=== PATIENT | female | born 1950 | race Caucasian/White ===

== ENCOUNTER 2020-02-26 09:19 | Inpatient (IN) ==
[2020-02-26] MEDS ORDERED: dilTIAZem HCl 5 MG/ML 5 ML VIAL IV ONE (09:28)
[2020-02-26] MEDS ORDERED: STAT IV Infusion **Titration per Protocol STA (09:28)
[2020-02-26] MEDS ORDERED: dilTIAZem HCl 5 MG/ML 5 ML VIAL IV STA (09:28)
[2020-02-26] MEDS ORDERED: ASPIRIN CHEW 324 MG PO STA (09:28)
[2020-02-26] MEDS ORDERED: dilTIAZem HCL 125 MG in DEXTROSE 5% 100 ML IV SCH (09:30)
[2020-02-26] MEDS ORDERED: SODIUM CHLORIDE 0.9% 1000ML 1,000 ML IV SCH (09:30)
[2020-02-26 09:39] LABS: Basophils # (auto) 0.01 K/uL (0-0.2); Basophils % (auto) 0.1 %; Eosinophils # (auto) 0.15 K/uL (0-0.5); Eosinophils % (auto) 2.2 %; Hematocrit (blood only) 38.8 % (37-47); Hemoglobin 13.6 g/dL (12.0-16.0); Immature Granulocytes # (auto) 0.01 K/uL (0.00-0.02); Immature Granulocytes % (auto) 0.1 %; Lymphocytes # (auto) 0.74 K/uL (1.2-3.4); Lymphocytes % (auto) 10.7 %; Mean Corpuscular Hemoglobin 33.4 pg (25-34); Mean Corpuscular Hgb Conc 35.1 g/dL (32-36); Mean Corpuscular Volume 95.3 fL (80-100); Monocytes # (auto) 0.85 K/uL (0.11-0.59); Monocytes % (auto) 12.3 %; Neutrophils # (auto) 5.14 K/uL (1.4-6.5); Neutrophils % (auto) 74.6 %; Platelet Count 271 K/uL (130-400); RDW Coefficient of Variation 12.8 % (11.5-14.5); RDW Standard Deviation 44.6 fL (36.4-46.3); Red Blood Count 4.07 M/uL (4.2-5.4)
--- NOTE | 2020-02-26 09:42 | XRay Report ---
XR chest 1V portable CLINICAL HISTORY: Atypical chest pain COMPARISON STUDY: January 2011 FINDINGS: The heart is the upper limits of normal in size. There is no failure. There is no focal pul monary consolidation. There are no pleural effusions.[ IMPRESSION: No active disease in the chest. ACT 112: Negative or not required by law. Electronically signed by: Duc Kirby M.D. 02/26/2020 9:41 AM
[2020-02-26 09:49] LABS: Partial Thromboplastin Ratio 0.9; Partial Thromboplastin Time 25.5 Seconds (21.0-31.0); Prothrombin Time 10.9 Seconds (9.0-12.0)
[2020-02-26 09:57] LABS: BUN Creatinine Ratio 12.5 (10-20); Blood Urea Nitrogen 13 mg/dl (7-18); Calcium 9.1 mg/dl (8.5-10.1); Carbon Dioxide 28 mmol/L (21-32); Chloride 112 mmol/L (98-107); Creatinine Clr Calc Pharmacy 54.8 ml/min; Est GFR (Non-African American) 53.5; Glucose 105 mg/dl (70-99); Lipase 69 U/L (73-393); Magnesium 2.2 mg/dl (1.8-2.4); Potassium 3.4 mmol/L (3.5-5.1); Sodium 145 mmol/L (136-145)
[2020-02-26 10:02] LABS: Troponin I < 0.015 ng/ml (0-0.045)
--- NOTE | 2020-02-26 10:14 | Emergency Department Note ---
History of Present Illness General Chief Complaint: Cardiac Assessment Time Seen by Provider: 02/26/20 09:23 History of Present Illness Provider Complaint: + rapid heart beat Onset (ago): year(s) (1) Duration: + Intermittent Maximum Pain Intensity: 5 Current Pain Intensity: 0 Associated symptoms: + cough; no chest pain, no shortness of breath, no syncope, no near-syncope, no nausea, no vomiting, no anxiety, no diaphoresis, no paresthesias and no muscle cramps HPI narrative: Patient states she has been having symptoms of palpitations on and off for the last year. She states she went to her doctor's office for an annual checkup today and found her to have a rapid heartbeat and was referred here to the emergency department. Home Medications Medication Instructions Recorded Confirmed Type cholecalciferol (vitamin D3) 25 25 mcg PO DAILY 07/25/19 07/25/19 History mcg (1,000 unit) tablet furosemide 20 mg tablet 20 mg PO BID 07/25/19 07/25/19 History gabapentin 300 mg capsule 300 mg PO DAILY 07/25/19 07/25/19 History ibuprofen 200 mg tablet 200 mg PO Q6H PRN 07/25/19 07/25/19 History mecobalamin (vitamin B12) 5,000 5,000 mcg PO DAILY 07/25/19 07/25/19 History mcg lozenge pantoprazole 40 mg granules 40 mg PO DAILY 07/25/19 07/25/19 History delayed-release for susp in packet potassium chloride 20 mEq oral 20 meq PO DAILY 07/25/19 07/25/19 History packet tofacitinib 11 mg tablet,extended 11 mg PO DAILY 07/25/19 07/25/19 History release 24 hr meloxicam 15 mg tablet 15 mg PO DAILY PRN #30 tab 10/14/19 Rx Allergies Allergy/AdvReac Type Severity Reaction Status Date / Time iodine AdvReac Severe DIFFICULTY Unverified 07/25/19 14:49 BREATHING codeine AdvReac Unknown Verified 07/25/19 14:49 etanercept [From Enbrel] AdvReac Unknown Verified 07/25/19 14:49 hydroxychloroquine AdvReac Unknown Verified 07/25/19 14:49 [From Plaquenil] Iodinated Contrast Media AdvReac Unknown Verified 07/25/19 14:49 meperidine [From Demerol] AdvReac Unknown Verified 07/25/19 14:49 nabumetone AdvReac Unknown Verified 07/25/19 14:49 petrolatum,white AdvReac Unknown Verified 07/25/19 14:49 [From Petroleum Jelly] penicillin G AdvReac HIVES Verified 07/25/19 14:49 Sulfa (Sulfonamide AdvReac RASH, HIVES Verified 07/25/19 14:49 Antibiotics) Past Med/Surg History Medical History (Updated 02/26/20 @ 10:14 by Tyler Serna) Asthma No pertinent family history Surgical History (Updated 02/26/20 @ 10:10 by Tyler Serna) No pertinent past surgical history Social History Smoking Status: Never smoker Feels Safe at Home: Yes Review of Systems A total of 10 systems reviewed and were otherwise negative Physical Exam Vital Signs: Vital Signs - 24 hr 02/26/20 09:22 02/26/20 09:28 02/26/20 09:31 Temperature 37.3 C Temperature Source Oral Pulse Rate 159 H 142 H 177 H Pulse Rate from Sp O2 Sensor 167 H 158 H Respiratory Rate 14 26 H 21 Blood Pressure 178/140 H 178/140 H 163/133 H Blood Pressure Mayelin n 152 152 143 Pulse Oximetry 97 96 97 Oxygen Delivery Me thod Room Air Sepsis Recent Feve r Within 48 Hours No Sepsis New/Unexpla ined Change in Men luis Status No Sepsis Action Take n by Nursing Physician Notified 02/26/20 09:36 02/26/20 09:39 02/26/20 09:45 Temperature Temperature Source Pulse Rate 108 H 114 H Pulse Rate from Sp O2 Sensor 110 H 98 H Respiratory Rate 12 16 Blood Pressure 131/105 H 132/93 Blood Pressure Mayelin n 113 106 Pulse Oximetry 97 96 96 Oxygen Delivery Me thod Room Air Sepsis Recent Feve r Within 48 Hours Sepsis New/Unexpla ined Change in Men luis Status Sepsis Action Take n by Nursing 02/26/20 10:00 Temperature Temperature Source Pulse Rate 129 H Pulse Rate from Sp O2 Sensor 134 H Respiratory Rate 21 Blood Pressure 128/87 Blood Pressure Mayelin n 100 Pulse Oximetry 96 Oxygen Delivery Me thod Sepsis Recent Feve r Within 48 Hours Sepsis New/Unexpla ined Change in Men luis Status Sepsis Action Take n by Nursing Physical Exam: Physical Exam GENERAL: She is oriented to person, place, and time. She appears well-developed and well-nourished. She does not appear distressed. HENT: Exam performed. -Head: Normocephalic and atraumatic. -Right Ear: External ear normal. No mastoid tenderness. -Left Ear: External ear normal. No mastoid tenderness. -Mouth/Throat: The oropharynx is clear and moist. No trismus in the jaw. No dental abscesses or uvula swelling. No oropharyngeal exudate or tonsillar abscesses. EYES: Conjunctivae and EOM are normal. Pupils are equal, round, and reactive to light. Right eye exhibits no discharge. Left eye exhibits no discharge. No scleral icterus. NECK: Normal range of motion. Neck supple. No JVD present. No spinous process tenderness present. No carotid bruit present. No rigidity. No tracheal deviation and normal range of motion present. No Brudzinski's sign and no Kernig's sign noted. CV: Tachycardic rate, irregular rhythm, normal heart sounds and intact distal pulses. There is no peripheral edema. Palpable radial pulses bue. PULM/CHEST: Effort normal and breath sounds normal. No respiratory distress. No stridor. She has no wheezes. She has no rales. -Chest Wall: She exhibits no tenderness. ABD: The abdomen is soft. Bowel sounds are normal. She has no distension. No mass is present. There is no tenderness. There is no rebound, no guarding, no Jimenez's sign and no tenderness at McBurney's point. Rovsig negative MUSC/SKEL: Normal range of motion. There is no peripheral edema, tenderness or deformity. LYMPH: No cervical adenopathy. NEURO: She is alert and oriented to person, place, and time. She has normal strength. No cranial nerve deficit or sensory deficit. Coordination and gait normal. GCS eye subscore is 4. GCS verbal subscore is 5. GCS motor subscore is 6. Cerebellar tests wnl. SKIN: Skin is warm and dry. She is not diaphoretic. PSYCH: She has a normal mood and affect. Behavior is normal. Judgment and thought content normal. Course Course 09: The patient was evaluated in room A2. A complete history and physical exam was performed. Patient was placed on environmental monitoring specialist and found to be in A. fib RVR with a rate between 160-180. Large-bore IV access was obtained. Patient was placed on continuous pulse ox. IV fluids were started and patient was push 20 mg of Cardizem IV bolus. This improved the patient's heart rate. Patient will be started on a Cardizem drip. 1011: Vital signs stable on Cardizem drip. Labs within normal limits. Imaging within normal limits. Aspirin given to the patient. Patient has a chads 2 score of 1. Patient will be admitted to [facility] team Dr. Taveras notified. Administered Medications Sodium Chloride (Nss 1000ml) 1,000 mls @ 999 mls/hr IV .Q1H1M [facility] Stop: 02/26/20 10:30 Last Admin: 02/26/20 09:32 Dose: 999 mls/hr Documented by: [id number] Diltiazem HCl 125 mg/ Dextrose 125 mls @ 5 mls/hr IV .Q24H [facility]; Protocol Stop: 03/27/20 09:29 Last Admin: 02/26/20 09:48 Dose: 5 mg/hr, 5 mls/hr Documented by: [id number] Cosigned by: [id number] Discontinued Medications Aspirin (Aspirin Chew 324 Mg) 324 mg PO NOW STA Stop: 02/26/20 09:29 Last Admin: 02/26/20 09:34 Dose: 324 mg Documented by: [id number] Diltiazem HCl (Diltiazem Hcl 5 Mg/Ml 5 Ml Vial) Confirm Administered Dose 25 mg IV .STK-MED ONE Stop: 02/26/20 09:29 Last Increment: 02/26/20 09:32 Dose: 20 mg Documented by: [id number] Cosigned by: [id number] Diltiazem HCl (Diltiazem Hcl 5 Mg/Ml 5 Ml Vial) 20 mg IV NOW STA Stop: 02/26/20 09:29 Last Admin: 02/26/20 09:32 Dose: Not Given Documented by: [id number] Miscellaneous (Stat Iv Infusion Titration Per Protocol) 1 ea N/A NOW STA Stop: 02/26/20 09:29 Last Admin: 02/26/20 09:47 Dose: 1 ea Documented by: [id number] Medical Decision Making Laboratory Data Result diagrams: 02/26/20 09:30 01/21/21 09:30 Lab Results 02/26/20 02/26/20 02/26/20 Range/Units 09:30 09:30 09:30 WBC 6.90 (4.8-10.8) K/uL RBC 4.07 L (4.2-5.4) M/uL Hgb 13.6 (12.0-16.0) g/dL Hct 38.8 (37-47) % MCV 95.3 (80-100) fL MCH 33.4 (25-34) pg MCHC 35.1 (32-36) g/dL RDW Std Deviation 44.6 (36.4-46.3) fL RDW Coeff of Jeevan 12.8 (11.5-14.5) % Plt Count 271 (130-400) K/uL MPV 9.0 (7.4-10.4) fL Immature Gran % (Auto) 0.1 % Neut % (Auto) 74.6 % Lymph % (Auto) 10.7 % Meagher % (Auto) 12.3 % Eos % (Auto) 2.2 % Baso % (Auto) 0.1 % Neut # (Auto) 5.14 (1.4-6.5) K/uL Lymph # (Auto) 0.74 L (1.2-3.4) K/uL Meagher # (Auto) 0.85 H (0.11-0.59) K/uL Eos # (Auto) 0.15 (0-0.5) K/uL Baso # (Auto) 0.01 (0-0.2) K/uL Immature Gran # (Auto) 0.01 (0.00-0.02) K/uL PT 10.9 (9.0-12.0) Seconds INR 1.0 (0.9-1.1) APTT 25.5 (21.0-31.0) Seconds PTT Ratio 0.9 Sodium 145 (136-145) mmol/L Potassium 3.4 L (3.5-5.1) mmol/L Chloride 112 H (98-107) mmol/L Carbon Dioxide 28 (21-32) mmol/L Anion Gap 5.0 (3-11) BUN 13 (7-18) mg/dl Creatinine 1.06 (0.6-1.2) mg/dl Est Cr Clr Drug Dosing 54.8 ml/min Est GFR ( Amer) 62.0 Est GFR (Non-Af Amer) 53.5 BUN/Creatinine Ratio 12.5 (10-20) Glucose 105 H (70-99) mg/dl Calcium 9.1 (8.5-10.1) mg/dl Magnesium 2.2 (1.8-2.4) mg/dl Troponin I < 0.015 (0-0.045) ng/ml Lipase 69 L (73-393) U/L COVID-19 Eval Order 02/26/20 Range/Units 09:40 WBC (4.8-10.8) K/uL RBC (4.2-5.4) M/uL Hgb (12.0-16.0) g/dL Hct (37-47) % MCV (80-100) fL MCH (25-34) pg MCHC (32-36) g/dL RDW Std Deviation (36.4-46.3) fL RDW Coeff of Jeevan (11.5-14.5) % Plt Count (130-400) K/uL MPV (7.4-10.4) fL Immature Gran % (Auto) % Neut % (Auto) % Lymph % (Auto) % Meagher % (Auto) % Eos % (Auto) % Baso % (Auto) % Neut # (Auto) (1.4-6.5) K/uL Lymph # (Auto) (1.2-3.4) K/uL Meagher # (Auto) (0.11-0.59) K/uL Eos # (Auto) (0-0.5) K/uL Baso # (Auto) (0-0.2) K/uL Immature Gran # (Auto) (0.00-0.02) K/uL PT (9.0-12.0) Seconds INR (0.9-1.1) APTT (21.0-31.0) Seconds PTT Ratio Sodium (136-145) mmol/L Potassium (3.5-5.1) mmol/L Chloride (98-107) mmol/L Carbon Dioxide (21-32) mmol/L Anion Gap (3-11) BUN (7-18) mg/dl Creatinine (0.6-1.2) mg/dl Est Cr Clr Drug Dosing ml/min Est GFR ( Amer) Est GFR (Non-Af Amer) BUN/Creatinine Ratio (10-20) Glucose (70-99) mg/dl Calcium (8.5-10.1) mg/dl Magnesium (1.8-2.4) mg/dl Troponin I (0-0.045) ng/ml Lipase (73-393) U/L COVID-19 Eval Order Covid19 [facility] Imaging Data Radiologist's Impression: XR chest 1V portable CLINICAL HISTORY: Atypical chest pain COMPARISON STUDY: January 2011 FINDINGS: The heart is the upper limits of normal in size. There is no failure. There is no focal pulmonary consolidation. There are no pleural effusions.[ IMPRESSION: No active disease in the chest. ACT 112: Negative or not required by law. Electronically signed by: Duc Kirby M.D. 02/26/2020 9:41 AM Dictated: 02/26/20939Transcribed: 02/26/20939 ECG Data Indication: palpitations Rate (beats per minute): 159 Rhythm: atrial fibrillation Findings: no ST depression, no ST elevation and no prolonged QT Additional Comments: EKG #[id number] status post 20 mg Cardizem IV bolus: Atrial fibrillation with rate of 110. QRS 74. QTc 462. No ST elevation or ST dep ression. [facility] Narrative 0923: The patient was evaluated in room A2. A complete history and physical exam was performed. Patient was placed on environmental monitoring specialist and found to be in A. fib RVR with a rate between 160-180. Large-bore IV access was obtained. Patient was placed on continuous pulse ox. IV fluids were started and patient was push 20 mg of Cardizem IV bolus. This improved the patient's heart rate. Patient will be started on a Cardizem drip. 1011: Vital signs stable on Cardizem drip. Labs within normal limits. Imaging within normal limits. Aspirin given to the patient. Patient has a chads 2 score of 1. Patient will be admitted to the [facility] team Dr. Taveras notified. Impression & Plan Atrial fibrillation with rapid ventricular response Critical Care Time Critical Care Time: Yes Total Critical Care Time: 69 I have personally spent greater than 69 minutes of critical care time in the direct management of this patient. This includes bedside care, interpretation of diagnostic studies, and testing, discussion with consultants, patient, and family members, and other required patient management activities. This 69 minutes is in excess of all separately billable procedures. Discharge Plan Visit Data Chief Complaint: Cardiac Assessment ED Provider: Tyler Serna Discharge Problem: Atrial fibrillation with rapid ventricular response Patient Disposition: Admitted As Inpatient Forms Stand Alone Forms: [facility], Virtual Emergency Department, Important Visit Information Prescriptions Prescriptions: No Action meloxicam 15 mg tablet 15 mg PO DAILY PRN (Reason: pain) Qty: 30 RF: 2 furosemide [Lasix] 20 mg tablet 20 mg PO BID RF: 0 potassium chloride 20 mEq packet 20 meq PO DAILY RF: 0 cholecalciferol (vitamin D3) 25 mcg (1,000 unit) tablet 25 mcg PO DAILY RF: 0 Protonix [address] for susp in packet 40 mg PO DAILY RF: 0 Xeljanz XR 11 mg tablet extended release 24 hr 11 mg PO DAILY RF: 0 mecobalamin (vitamin B12) 5,000 mcg lozenge 5,000 mcg PO DAILY RF: 0 ibuprofen [Advil] 200 mg tablet 200 mg PO Q6H PRNRF: 0 gabapentin 300 mg capsule 300 mg PO DAILY RF: 0 Referrals Referrals: Robert Moncada MD [Primary Care Provider] -
[2020-02-26] MEDS ORDERED: POTASSIUM CHLORIDE CRTAB 20 MEQ TABCR PO STA (10:43)
[2020-02-26] MEDS ORDERED: METOPROLOL TARTRATE 1 MG/ML VIAL IV ONE (10:49)
--- NOTE | 2020-02-26 12:01 | History & Physical Report ---
Date of Service February 26, 2020 Assessment & Plan (1) Atrial fibrillation with rapid ventricular response: Mrs. Amin is a 69 year old female with a history of Asthma, Inflammatory Arthritis, Osteoarthritis, GERD, and Hypertension who presents to [facility] ER with newly diagnosed A-Fib with RVR which has likely been coming and going over the past year if not longer, but her current episode of A-Fib started about 2 months ago and has persisted. It appears that her A-Fib manifests with tachy- palpitations, decreased exercise tolerance, unusual CAMPOS when she walks her dog, and more fatigue in general. Fortunately she has not experienced any angina pectoris or anginal equivalent symptoms, overt symptoms of heart failure, nor has she had any neurologic symptoms suggestive of stroke or mini-stroke. We had a discussion today regarding what A-Fib is, the natural history of atrial arrhythmias, and various management strategies. She is currently on a Diltiazem drip but her V-rates are still in the 120 to 140 range. -- Admit to PCU on observation status. -- Continue Diltiazem drip. -- Correct hypokalemia. -- IV Lopressor 5 mg now x 1 dose, then Q4H as needed for HR > 110 bpm. -- Begin Lopressor 25 mg p.o. Q6H for better rate control. -- Begin Eliquis 5 mg b.i.d. -- 1st dose was given in the ER. -- Cardiology Consult. -- Echocardiogram was done in ER, appears to have normal LV systolic function and a mild degree of MR. (2) Hypokalemia: -- Serum K on admission 3.4 mmol/L -- Given Potassium Chloride 20 mEq in the ER. -- Monitor daily BMP. (3) Asthma: -- Continue Singulair 10 mg QHS. History of Present Illness Chief Complaint: -- Atrial Fibrillation with RVR. Primary Care Provider: Robert Moncada MD Mrs. Amin is a 69 year old female with a history of Asthma, Inflammatory Arthritis, Osteoarthritis, GERD, and Hypertension who presented to the ER today as a referral from her PCP, Dr. Steinberg. Patient went in for an annual physical exam today and was noted to tachycardic secondary A-Fib with RVR. Patient admits to having intermittent tachy-palpitations over the past year if not longer, but her current episode started about 2 months ago and has persisted. She admits to decreased exercise tolerance, unusual CAMPOS when she walks her dog, and more fatigue in general. She denies any chest pain, heaviness, tightness, or pressure. She denies any orthopnea or PND, although she has not been sleeping well lately. She denies any syncope or near-syncope. She has not experienced any neurologic symptoms suggestive of stroke or mini- stroke. Patient denies any history of heart disease, CAD, [place], rheumatic fever, or vascular disease. She had a Cardiac Catheterization about 15 years ago that was "normal" per patient. Allergies Allergy/AdvReac Type Severity Reaction Status Date / Time iodine AdvReac Severe DIFFICULTY Unverified 02/26/20 11:06 BREATHING codeine AdvReac Unknown Verified 02/26/20 11:06 etanercept [From Enbrel] AdvReac Unknown Verified 02/26/20 11:06 hydroxychloroquine AdvReac Unknown Verified 02/26/20 11:06 [From Plaquenil] Iodinated Contrast Media AdvReac Unknown Verified 02/26/20 11:06 meperidine [From Demerol] AdvReac Unknown Verified 02/26/20 11:06 nabumetone AdvReac Unknown Verified 02/26/20 11:06 petrolatum,white AdvReac Unknown Verified 02/26/20 11:06 [From Petroleum Jelly] penicillin G AdvReac HIVES Verified 02/26/20 11:06 Sulfa (Sulfonamide AdvReac RASH, HIVES Verified 02/26/20 11:06 Antibiotics) Home Medications Medication Instructions Recorded Confirmed Type cholecalciferol (vitamin D3) 25 25 mcg PO QAM 07/25/19 02/26/20 History mcg (1,000 unit) tablet mecobalamin (vitamin B12) 5,000 5,000 mcg PO QAM 07/25/19 02/26/20 History mcg lozenge pantoprazole 40 mg granules 40 mg PO HS 07/25/19 02/26/20 History delayed-release for susp in packet tofacitinib 11 mg tablet,extended 11 mg PO DAILY 07/25/19 02/26/20 History release 24 hr gabapentin 400 mg PO HS 02/26/20 02/26/20 History ibuprofen 600 mg PO BID 02/26/20 02/26/20 History loperamide [Imodium] 2 mg PO Q OTHER DAY PRN 02/26/20 02/26/20 History montelukast [Singulair] 10 mg PO HS 02/26/20 02/26/20 History Past Med/Surg History Medical History Asthma GERD (gastroesophageal reflux disease) HTN (hypertension) Inflammatory arthritis No pertinent family history Surgical History No pertinent past surgical history Family History Mother Unspecified atrial fibrillation Social History Smoking Status: Never smoker Feels Safe at Home: Yes Review of Systems Review of Systems: All systems reviewed & are unremarkable except as noted in Subjective Physical Exam Physical Exam: GENERAL: Patient in no acute distress. HEENT: Head is atraumatic, normocephalic. EOM's intact. Facies symmetric. No perioral cyanosis. NECK: No JVD. JVP is at the level of the clavicle sitting upright. Carotid upstrokes are + 2 bilaterally. No bruits are noted. CHEST/LUNGS: Clear to auscultation throughout all lung barton. No rales or crackles. CVS: S1 and S2 are irregularly irregular and tachycardic with a V-rate 130 bpm. No obvious murmurs, gallops, or rubs. PMI is nondisplaced. No lifts, heaves, or thrills. No abdominal aortic or renal bruits. ABDOMINAL EXAM: Bowel sounds are present. No masses, organomegaly, or tenderness. EXTREMITIES: No clubbing or cyanosis. No edema. Intact posterior tibial and radial pulses bilaterally. NEUROLOGIC EXAM: Patient is awake, alert, and oriented. Pleasant and cooperative. Answers questions appropriately. Speech is clear. Normal movement in all 4 extremities. Turn Down Man: -- A-Fib with RVR. EKG 02/26/2020 at 09:35:47: -- A-fib with V-rate of 110 bpm. -- Abnormal EKG. EKG 02/26/2020 at 09:28:36: -- A-fib with a V rate of 159 bpm. -- Non-specific ST and T wave abnormality. Results & Data Results & Data ([facility]) Vital Signs (Past 12 Hours) Vital Signs Temp Pulse Resp BP Pulse Ox 02/26/20 11:30 17 131/99 97 02/26/20 11:25 138 H 155/105 H 02/26/20 11:24 126 H 20 132/83 96 02/26/20 11:15 136 H 20 155/105 H 98 02/26/20 10:46 127 H 14 166/128 H 97 02/26/20 10:30 133 H 12 150/116 H 97 02/26/20 10:15 123 H 22 141/94 H 96 02/26/20 10:00 129 H 21 128/87 96 02/26/20 09:45 114 H 16 132/93 96 02/26/20 09:39 96 02/26/20 09:36 108 H 12 131/105 H 97 02/26/20 09:31 177 H 21 163/133 H 97 02/26/20 09:28 37.3 C 142 H 26 H 178/140 H 96 02/26/20 09:22 159 H 14 178/140 H 97 Laboratory Results Laboratory Results - last 24 hr 02/26/20 02/26/20 02/26/20 09:30 09:30 09:30 WBC 6.90 RBC 4.07 L Hgb 13.6 Hct 38.8 MCV 95.3 MCH 33.4 MCHC 35.1 RDW Std Deviation 44.6 RDW Coeff of Jeevan 12.8 Plt Count 271 MPV 9.0 Immature Gran % (Auto) 0.1 Neut % (Auto) 74.6 Lymph % (Auto) 10.7 [place] % (Auto) 12.3 Eos % (Auto) 2.2 Baso % (Auto) 0.1 Neut # (Auto) 5.14 Lymph # (Auto) 0.74 L [place] # (Auto) 0.85 H Eos # (Auto) 0.15 Baso # (Auto) 0.01 Immature Gran # (Auto) 0.01 PT 10.9 INR 1.0 APTT 25.5 PTT Ratio 0.9 Sodium 145 Potassium 3.4 L Chloride 112 H Carbon Dioxide 28 Anion Gap 5.0 BUN 13 Creatinine 1.06 Est Cr Clr Drug Dosing 54.8 Est GFR ( Amer) 62.0 Est GFR (Non-Af Amer) 53.5 BUN/Creatinine Ratio 12.5 Glucose 105 H Calcium 9.1 Magnesium 2.2 Troponin I < 0.015 Lipase 69 L TSH COVID-19 Eval Order SARS-CoV-2, RNA, NAAT 02/26/20 02/26/20 02/26/20 09:30 09:40 09:40 WBC RBC Hgb Hct MCV MCH MCHC RDW Std Deviation RDW Coeff of Jeevan Plt Count MPV Immature Gran % (Auto) Neut % (Auto) Lymph % (Auto) [place] % (Auto) Eos % (Auto) Baso % (Auto) Neut # (Auto) Lymph # (Auto) [place] # (Auto) Eos # (Auto) Baso # (Auto) Immature Gran # (Auto) PT INR APTT PTT Ratio Sodium Potassium Chloride Carbon Dioxide Anion Gap BUN Creatinine Est Cr Clr Drug Dosing Est GFR ( Amer) Est GFR (Non-Af Amer) BUN/Creatinine Ratio Glucose Calcium Magnesium Troponin I Lipase TSH 2.610 COVID-19 Eval Order Covid19 [facility] SARS-CoV-2, RNA, NAAT NEGATIVE Diagnostic Findings CXR 02/26/2020: -- No active disease in the chest. Medications Administered Diltiazem HCl 125 mg/ Dextrose 125 mls @ 5 mls/hr IV .Q24H [facility]; Protocol Stop: 03/27/20 09:29 Last Titration: 02/26/20 10:35 Dose: 10 mg/hr, 10 mls/hr Documented by: [id number] Cosigned by: [id number] Admin: 02/26/20 09:48 Dose: 5 mg/hr, 5 mls/hr Documented by: [id number] Cosigned by: [id number] Discontinued Medications Aspirin (Aspirin Chew 324 Mg) 324 mg PO NOW STA Stop: 02/26/20 09:29 Last Admin: 02/26/20 09:34 Dose: 324 mg Documented by: [id number] Diltiazem HCl (Diltiazem Hcl 5 Mg/Ml 5 Ml Vial) Confirm Administered Dose 25 mg IV .STK-MED ONE Stop: 02/26/20 09:29 Last Increment: 02/26/20 09:32 Dose: 20 mg Documented by: [id number] Cosigned by: [id number] Diltiazem HCl (Diltiazem Hcl 5 Mg/Ml 5 Ml Vial) 20 mg IV NOW STA Stop: 02/26/20 09:29 Last Admin: 02/26/20 09:32 Dose: Not Given Documented by: [id number] Sodium Chloride (Nss 1000ml) 1,000 mls @ 999 mls/hr IV .Q1H1M [facility] Stop: 02/26/20 10:30 Last Admin: 02/26/20 09:32 Dose: 999 mls/hr Documented by: [id number] Metoprolol Tartrate (Metoprolol Tartrate 1 Mg/Ml Vial) 5 mg IV NOW ONE Stop: 02/26/20 10:50 Last Admin: 02/26/20 11:25 Dose: 5 mg Documented by: [id number] Miscellaneous (Stat Iv Infusion Titration Per Protocol) 1 ea N/A NOW STA Stop: 02/26/20 09:29 Last Admin: 02/26/20 09:47 Dose: 1 ea Documented by: [id number] Potassium Chloride (Potassium Chloride Crtab 20 Meq Tabcr) 20 meq PO NOW STA Stop: 02/26/20 10:44 Last Admin: 02/26/20 11:25 Dose: 20 meq Documented by: [id number] Code Status & VTE Plan Code Status Full Code VTE Prophylaxis Plan VTE Prophylaxis will be ordered: Yes Supervising Physician Co-Signing Physician Notes I personally saw and examined the patient. I verified all dixon points and agree with NIR Green with the following exceptions and/or additions: 69-year-old female with new onset atrial fibrillation with RVR (picked up on EKG at her PCP office). Based on her symptoms of palpitations and shortness of breath on exertion she suspects she has had this for approximately 1 year but getting more frequent in the last few months. O/E no acute distress, chest CTAB, HS irregular irregular, no murmurs, no pedal edema. A/P Atrial fibrillation with RVR -we will discontinue further IV metoprolol due to asthma however okay to start metoprolol 25 mg p.o. every 6 hourly with aim to wean off diltiazem IV drip, anticoagulation with Eliquis (needs free coupon prior to discharge). TSH within normal limits. TTE pending. Aim for discharge home tomorrow. Asthma -discussed potential worsening of her asthma or failure of albuterol with starting metoprolol PG Care Time/CCT Total # of Minutes Spent Total Time Spent with Patient: Total time spent is greater than 50% in coordination of care (as documented) at patient's floor/unit and/or counseling patient:50 Coding Level of Care Code 27560 OBS Care - Level 3 Diagnoses Atrial fibrillation with rapid ventricular response I48.91 Hypokalemia E87.6 Asthma J45.909 Time Spent (min) 60
[2020-02-26] MEDS: APIXABAN 5 MG TABLET PO SCH ×2 (12:45→20:41)
[2020-02-26] MEDS ORDERED: LOPERAMIDE HCL 2 MG CAP PO PRN (13:26)
[2020-02-26] MEDS ORDERED: MAGNESIUM HYDROXIDE SUSP 30 ML UDC PO PRN (13:26)
[2020-02-26] MEDS ORDERED: ALUMINUM/MAGNESIUM/SIMETH (MAALOX MAX) 30 ML UDC PO PRN (13:26)
[2020-02-26] MEDS ORDERED: ONDANSETRON INJ 2 MG/ML 2 ML VIAL IV PRN (13:26)
[2020-02-26] MEDS: METOPROLOL TARTRATE 25 MG TAB PO SCH ×3 (14:18→23:44)
--- NOTE | 2020-02-26 15:38 | XCELERA ---
[id number]
[2020-02-26] MEDS: GABAPENTIN 400 MG CAP PO SCH (20:41)
[2020-02-26] MEDS: PANTOprazole 40 MG TAB PO SCH (20:41)
[2020-02-26] MEDS: MONTELUKAST SODIUM 10 MG TABLET PO SCH (20:42)
[2020-02-26] MEDS: IBUPROFEN 600 MG TAB PO SCH (20:48)
[2020-02-27] MEDS: METOPROLOL TARTRATE 25 MG TAB PO SCH ×4 (05:15→23:43)
--- NOTE | 2020-02-27 06:07 | Electrocardiogram Report ---
Test Reason : Blood Pressure : / mmHG Vent. Rate : 159 BPM Atrial Rate : 144 BPM P-R Int : 000 ms QRS Dur : 068 ms QT Int : 300 ms P-R-T Axes : 000 025 -07 degrees QTc Int : 488 ms Poor data quality, interpretation may be adversely affected Atrial fibrillation with rapid ventricular response with premature ventricular or aberrantly conducte d complexes Nonspecific ST and T wave abnormality Abnormal ECG When compared with ECG of 18-AUG-2009 12:14, Atrial fibrillation has replaced Sinus rhythm Vent. rate has increased BY [address] now depressed in Anterior leads Nonspecific T wave abnormality, worse in Inferior leads Confirmed by Maximiliano Vigil ([id number]) on 02/27/2020 6:07:12 AM Referred By: Confirmed By:Maximiliano Vigil
--- NOTE | 2020-02-27 06:08 | Electrocardiogram Report ---
Test Reason : Blood Pressure : / mmHG Vent. Rate : 110 BPM Atrial Rate : 277 BPM P-R Int : 000 ms QRS Dur : 074 ms QT Int : 342 ms P-R-T Axes : 000 027 -11 degrees QTc Int : 462 ms Poor data quality, interpretation may be adversely affected Atrial fibrillation with rapid ventricular response Abnormal ECG When compared with ECG of 26-FEB-2020 09:25, No significant change was found Confirmed by Maximiliano Vigil ([id number]) on 02/27/2020 6:07:49 AM Referred By: Confirmed By:Maximiliano Vigil
[2020-02-27 07:16] LABS: Basophils # (auto) 0.02 K/uL (0-0.2); Basophils % (auto) 0.4 %; Eosinophils # (auto) 0.17 K/uL (0-0.5); Eosinophils % (auto) 3.3 %; Hematocrit (blood only) 35.8 % (37-47); Hemoglobin 12.6 g/dL (12.0-16.0); Immature Granulocytes # (auto) 0.01 K/uL (0.00-0.02); Immature Granulocytes % (auto) 0.2 %; Lymphocytes # (auto) 0.74 K/uL (1.2-3.4); Lymphocytes % (auto) 14.5 %; Mean Corpuscular Hemoglobin 33.6 pg (25-34); Mean Corpuscular Hgb Conc 35.2 g/dL (32-36); Mean Corpuscular Volume 95.5 fL (80-100); Mean Platelet Volume 9.2 fL (7.4-10.4); Monocytes # (auto) 0.65 K/uL (0.11-0.59); Monocytes % (auto) 12.8 %; Neutrophils % (auto) 68.8 %; Platelet Count 256 K/uL (130-400); RDW Coefficient of Variation 12.9 % (11.5-14.5); RDW Standard Deviation 44.9 fL (36.4-46.3); Red Blood Count 3.75 M/uL (4.2-5.4); White Blood Count 5.09 K/uL (4.8-10.8)
[2020-02-27 07:40] LABS: BUN Creatinine Ratio 14.1 (10-20); Calcium 8.8 mg/dl (8.5-10.1); Creatinine Clr Calc Pharmacy 65.7 ml/min; Est GFR (African American) 77.7; Potassium 3.7 mmol/L (3.5-5.1)
[2020-02-27] MEDS: CHOLECALCIFEROL 1,000 UNITS 25 MCG TAB PO SCH (08:04)
[2020-02-27] MEDS: APIXABAN 5 MG TABLET PO SCH ×2 (08:04→20:46)
[2020-02-27] MEDS: IBUPROFEN 600 MG TAB PO SCH ×2 (08:06→20:49)
--- NOTE | 2020-02-27 08:25 | Hospitalist Progress Note ---
Date of Service February 27, 2020 Assessment & Plan (1) Atrial fibrillation with rapid ventricular response: 02-26 still poorly controlled TSH 2.6 (normal) rate 119 this morning continue dilt drip cont metoprolol tartrate 25mg q6h eliquis for stroke prevention cardiology consulted they will keep patient on diltiazem and convert to PO if unable to control rate, will do EWA/cardioversion on Sunday (2) Hypokalemia: 02-26 potassium 3.7, Mg 2.2 (3) Asthma: well controlled (4) Rheumatoid arthritis: sees outpatient rheumatology attempting to get approval for Xelganz which controls her symptoms well -- last dose 1-15 currently pain free DVT gay callawaydilia CODE a full Admission and Anticipated Discharge Date Admission Date: February 26, 2020 Subjective Patient reports having palpitations on and off for a year. Did not see a doctor until yesterday at which time she was directed to ER. On arrival, she was in afib with rvr. Endorses dry cough. Denies currently having palpitations, chest pain, shortness of breath, no nausea or vomiting, no edema. She has RA, well controlled on a regimen of xelganz. She recently lost her insurance so can not afford xelganz. She has been taking more ibuprofen recently to help with arthritis -- 600mg BID. She denies melena or hematochezia. No hematemesis. Currently her pain is well controlled. She has not tried voltaren gel before. Review of Systems Constitutional: no fever, no chills, no fatigue, no weakness, no anorexia, no weight loss and no weight gain Ear, Nose, Mouth, Throat: no nasal congestion, no sore throat and no dysphagia Respiratory: + cough; no dyspnea Cardiovascular: no chest pain, no dyspnea on exertion, no orthopnea and no palpitations Gastrointestinal: no abdominal pain, no nausea, no vomiting, no hematemesis, no dysphagia, no constipation, no diarrhea/loose stools, no blood in stools and no melena Genitourinary: no dysuria, no urinary frequency, no hematuria and no flank pain Musculoskeletal: no back pain, no joint pain, no myalgia and no muscle weakness Integumentary: no rash, no lesions, no skin ulcer, no erythema, no dry skin and no pruritus Neurologic: no falls, no localized weakness, no generalized weakness, no numbness, no paresthesia, no tremor(s) and no headache(s) Psychiatric: no depression, no suicidal ideation, no homicidal ideation and no anxiety Endocrine: no cold intolerance and no heat intolerance Hematologic / Lymphatic: no easy bleeding and no easy bruising Physical Exam Constitutional: well developed and well nourished; no acute distress Eyes: PERRL, conjunctivae normal, anicteric sclerae ENMT: Mouth: oral mucous membranes not dry Respiratory: normal respiratory effort; no respiratory distress and no labored breathing Auscultation: lungs clear to auscultation bilaterally; no crackles, no rales, no rhonchi and no wheezes Cardiovascular: Rate/Rhythm: + tachycardic and + irregularly irregular Heart Sounds: no murmur and no cardiac rub Vessels: normal peripheral pulses and radial pulses present; no JVD Extremities: no edema Gastrointestinal (Abdomen): Inspection/Auscultation: abdomen normal to inspection and normal bowel sounds; abdomen not distended Percussion/Palpation: abdomen soft; abdomen nontender, no guarding, abdomen not rigid and no hepatosplenomegaly Musculoskeletal: Head/Neck/Chest: normocephalic and head atraumatic Spine: no cervical spinal tenderness, no cervical muscular tenderness, no thoracic spinal tenderness and no lumbar spinal tenderness Skin: no rashes, warm and dry Neurologic: CN's II-XI intact bilaterally and moves all extremities Motor/Sensory: no tremor and no sensory deficit Psychiatric: Orientation: alert, oriented to person, oriented to place and oriented to time Apperance: appropriately groomed; not disheveled Affect: euthymic affect; no anxious affect and no tearful affect Genitourinary: no CVA tenderness no Gay catheter Results & Data Results & Data ([facility]) Vital Signs (Past 12 Hours) Vital Signs Temp Pulse Pulse Resp BP Pulse Ox 02/27/20 07:15 36.4 C L 119 H 20 115/83 98 02/27/20 04:40 36.2 C L 83 18 108/77 96 02/27/20 00:00 92 H 02/26/20 23:12 36.6 C 96 H 18 136/84 96 Laboratory Results Abnormal lab results 02/26/20 02/26/20 02/27/20 Range/Units 09:30 09:30 06:48 RBC 4.07 L 3.75 L (4.2-5.4) M/uL Hct 35.8 L (37-47) % Lymph # (Auto) 0.74 L 0.74 L (1.2-3.4) K/uL Camp # (Auto) 0.85 H 0.65 H (0.11-0.59) K/uL Potassium 3.4 L (3.5-5.1) mmol/L Chloride 112 H (98-107) mmol/L Glucose 105 H (70-99) mg/dl Lipase 69 L (73-393) U/L 02/27/20 Range/Units 06:48 RBC (4.2-5.4) M/uL Hct (37-47) % Lymph # (Auto) (1.2-3.4) K/uL Camp # (Auto) (0.11-0.59) K/uL Potassium (3.5-5.1) mmol/L Chloride 111 H (98-107) mmol/L Glucose (70-99) mg/dl Lipase (73-393) U/L Medications Administered Current Inpatient Medications Al Hydrox/Mg Hydrox/Simethicone (Aluminum/Magnesium/Simeth (Maalox Max) 30 Ml Udc) 30 ml PO Q6H PRN PRN Reason: Heartburn Stop: 03/27/20 13:25 Apixaban (Apixaban 5 Mg Tablet) 5 mg PO BID [facility] Stop: 03/27/20 11:14 Last Admin: 02/27/20 08:04 Dose: 5 mg Documented by: Gabapentin (Gabapentin 400 Mg Cap) 400 mg PO HS [facility] Stop: 03/27/20 20:59 Last Admin: 02/26/20 20:41 Dose: 400 mg Documented by: Diltiazem HCl 125 mg/ Dextrose 125 mls @ 0 mls/hr IV .Q0M [facility]; Protocol Stop: 03/27/20 09:29 Last Titration: 02/26/20 18:21 Dose: 0 mg/hr, 0 mls/hr Documented by: Ibuprofen (Ibuprofen 600 Mg Tab) 600 mg PO BID [facility] Stop: 03/27/20 20:59 Last Admin: 02/27/20 08:06 Dose: 600 mg Documented by: Loperamide HCl (Loperamide Hcl 2 Mg Cap) 2 mg PO Q2D PRN PRN Reason: ibs Stop: 03/27/20 13:25 Magnesium Hydroxide (Magnesium Hydroxide Susp 30 Ml Udc) 30 ml PO Q6H PRN PRN Reason: Constipation Stop: 03/27/20 13:25 Metoprolol Tartrate (Metoprolol Tartrate 25 Mg Tab) 25 mg PO Q6 [facility] Stop: 03/27/20 13:44 Last Admin: 02/27/20 05:15 Dose: 25 mg Documented by: Montelukast Sodium (Montelukast Sodium 10 Mg Tablet) 10 mg PO HS [facility] Stop: 03/27/20 20:59 Last Admin: 02/26/20 20:42 Dose: 10 mg Documented by: Ondansetron HCl (Ondansetron Inj 2 Mg/Ml 2 Ml Vial) 4 mg IV Q8H PRN PRN Reason: Nausea Stop: 03/27/20 13:25 Pantoprazole Sodium (Pantoprazole 40 Mg Tab) [address] [facility] Stop: 03/27/20 20:59 Last Admin: 02/26/20 20:41 Dose: 40 mg Documented by: Vitamin D (Cholecalciferol 1,000 Units 25 Mcg Tab) 1,000 units PO QAM [facility] Stop: 03/28/20 08:59 Last Admin: 02/27/20 08:04 Dose: 1,000 units Documented by: PG Care Time/CCT Total # of Minutes Spent Total Time Spent with Patient: Total time spent is greater than 50% in coor dination of care (as documented) at patient's floor/unit and/or counseling patient: Coding Level of Care Code 67381 Subseq Hosp Care Lvl 2 Diagnoses Atrial fibrillation with rapid ventricular response I48.91 Hypokalemia E87.6 Asthma J45.909 Rheumatoid arthritis M06.9
[2020-02-27] MEDS ORDERED: MECOBALAMIN 5000 MCG PO SCH (09:00)
[2020-02-27] MEDS: dilTIAZem HCL 30 MG TAB PO SCH ×3 (12:59→22:49)
--- NOTE | 2020-02-27 13:19 | Cardiology Consultation ---
Date of Consultation February 27, 2020 Assessment & Plan (1) Atrial fibrillation with rapid ventricular response: (2) HTN (hypertension): (3) Hypervolemia: (4) Mitral regurgitation: ASSESSMENT/PLAN: 1. AFib with RVR: Symptomatic at time with palpitations and also dyspnea. Heart rate was well controlled overnight to the point that diltiazem drip was discontinued but once again tachycardic today. Start diltiazem 30 mg p.o. q.6 hours and can titrate upward as necessary. Continue metoprolol if tolerated with her asthma. Anticoagulation for stroke risk reduction (chads Vasc score 3). We discussed AFib diagnosis in detail. We discussed treatment strategies. For now, continue with rate control strategy. If rate control strategy, after titration of medications as necessary, is unsuccessful, would plan for transesophageal echo and cardioversion on Sunday. She was agreeable. 2. Hyperkalemia: She appears a bit hypervolemic, likely due to her AFib. Unclear if the AFib or hypervolemia is driving her shortness of breath, or multifactorial. Lasix 20 mg IV x1. 3. Mitral regurgitation: Discussed the finding on echo. She recalls having history of mitral regurgitation. Monitor over time. 4. Hypertension: More reasonably controlled today while hypertensive on present ation. Adjusting rate-controlling medications as above. 5. Disposition: I will be away from the hospital for the next few days. Please call the on-call briefcase sewer for any questions or concerns. Patient care communicated with primary hospitalist, Dr. Hewitt. Thank you for allowing me to participate in the care of your patient. Please call for any other questions or concerns. Sincerely, Damir Vigil M.D. History of Present Illness Reason for Consultation: AFib with RVR Requesting Physician: Guerda Hewitt MD Attending Physician: Guerda Hewitt MD History of Present Illness Mrs. Amin is a very pleasant 69 year old female with a history significant for hypertension and seasonal asthma. She was admitted on 02/26/2020 with atrial fibrillation with rapid ventricular response. For the past year so, she has had intermittent palpitations feeling as though her heart was racing. She believed it was due to her weight or the aging process. At times, she would notice a little shortness of breath. Approximately 4 months ago, dyspnea with exertion worsened. She typically walks her dog every morning for 2 miles and in the past did longer distances. Her 2 mi walk included an incline and it got to the point where she would have to stop to catch her breath. Her Fitbit would notify her that her heart rate was 120 to 150s at times. More recently, she has developed some nausea overnight and her fit bit once again would indicate that she had an elevated heart rate. She was supposed to see her PCP in January but it was postponed until yesterday. While there, an ECG demonstrated atrial fibrillation with rapid ventricular response and she was sent to the emergency department for evaluation. Over the past few weeks, she has developed a cough but no fevers or chills. She has occasional shortness of breath at rest but denies orthopnea. She continues to have dyspnea with exertion. She denies chest pain, syncope, near-syncope, edema, or bleeding. She has dizziness if she bends over and stands up quickly. In regards to her asthma, she states it has been very well controlled. She describes her asthma as being more seasonal. While here, she was placed on metoprolol, which he has tolerated well thus far. She also was placed on a diltiazem drip. Overnight, her heart rates improved and diltiazem drip was held. This morning however, she once again became more tachycardic and diltiazem drip was resumed by nursing staff. She has ambulated in the hallway and noted dyspnea. She She has had the following studies/procedures: 1. Echo 02/26/2020: Normal LV size, wall motion, systolic function. EF 55-60%. Mild LVH. Moderate left atrial dilation. Mild right atrial dilation. Moderate MR. RVSP normal. Review of systems: As above. Review of systems otherwise negative/unremarkable. Family history: Father had CA at the age of 50 and CABG in his 70s before passing away at 80. Mother with hypertension. Social history: Denies tobacco abuse. Occasional alcohol. No drugs. Lives at home with her . She has a son and a daughter. She is a nurse, not currently working. Allergies Allergy/AdvReac Type Severity Reaction Status Date / Time iodine AdvReac Severe DIFFICULTY Unverified 02/26/20 11:06 BREATHING codeine AdvReac Unknown Verified 02/26/20 11:06 etanercept [From Enbrel] AdvReac Unknown Verified 02/26/20 11:06 hydroxychloroquine AdvReac Unknown Verified 02/26/20 11:06 [From Plaquenil] Iodinated Contrast Media AdvReac Unknown Verified 02/26/20 11:06 meperidine [From Demerol] AdvReac Unknown Verified 02/26/20 11:06 nabumetone AdvReac Unknown Verified 02/26/20 11:06 petrolatum,white AdvReac Unknown Verified 02/26/20 11:06 [From Petroleum Jelly] penicillin G AdvReac HIVES Verified 02/26/20 11:06 Sulfa (Sulfonamide AdvReac RASH, HIVES Verified 02/26/20 11:06 Antibiotics) Home Medications Medication Instructions Recorded Confirmed Type cholecalciferol (vitamin D3) 25 25 mcg PO QAM 07/25/19 02/26/20 History mcg (1,000 unit) tablet mecobalamin (vitamin B12) 5,000 5,000 mcg PO QAM 07/25/19 02/26/20 History mcg lozenge pantoprazole 40 mg granules 40 mg PO HS 07/25/19 02/26/20 History delayed-release for susp in packet tofacitinib 11 mg tablet,extended 11 mg PO DAILY 07/25/19 02/26/20 History release 24 hr gabapentin 400 mg PO HS 02/26/20 02/26/20 History ibuprofen 600 mg PO BID 02/26/20 02/26/20 History loperamide [Imodium] 2 mg PO Q OTHER DAY PRN 02/26/20 02/26/20 History montelukast [Singulair] 10 mg PO HS 02/26/20 02/26/20 History Patient History Medical History (Updated 02/27/20 @ 13:19 by Maximiliano Vigil MD) Asthma GERD (gastroesophageal reflux disease) HTN (hypertension) Inflammatory arthritis Mitral regurgitation No pertinent family history Surgical History No pertinent past surgical history Family History Mother Unspecified atrial fibrillation Social History Smoking Status: Never smoker Hx Alcohol Use: Yes Alcohol type: beer, wine and hard liquor Hx Substance Use: No Preferred Language: Malay Beliefs That Will Affect Care: Yazidism Yazidism Beliefs: protisen Current Living Situation: Spouse Feels Safe at Home: Yes Assistive Devices: None Physical Exam Physical Exam: Gen.: No acute distress. Alert and oriented. HEENT: Anicteric sclera. Neck: Elevated JVD. No bruits. Normal carotid upstrokes bilaterally. Cardiac: PMI was nonpalpable. No ventricular heave. Irregularly irregular. Normal S1-S2. No murmurs, rubs, or gallops. Pulmonary: Clear to auscultation bilaterally without wheezes, rales, or rhonchi. Abdomen: Soft, nontender, nondistended, with normoactive bowel sounds. No bruits noted. Extremities: 2+ radial pulses bilaterally. 2+ posterior tibialis pulses bilaterally. No edema or cyanosis. Psychiatric: Affect appears appropriate. Results & Data ([facility]) Vital Signs (Past 12 Hours) Vital Signs Temp Pulse Resp BP Pulse Ox 02/27/20 11:02 37.0 C 119 H 20 117/84 97 02/27/20 07:15 36.4 C L 119 H 20 115/83 98 02/27/20 04:40 36.2 C L 83 18 108/77 96 Intake & Output 02/25/20 02/26/20 02/27/20 02/28/20 06:59 06:59 06:59 06:59 Intake Total 2410.250 / 2410.250 0 / 0 Output Total 2700 / 2700 Balance -289.750 / -289.750 0 / 0 Weight 183 lb 13.848 oz Laboratory Results Laboratory Results - last 24 hr 02/27/20 02/27/20 06:48 06:48 WBC 5.09 RBC 3.75 L Hgb 12.6 Hct 35.8 L MCV 95.5 MCH 33.6 MCHC 35.2 RDW Std Deviation 44.9 RDW Coeff of Jeevan 12.9 Plt Count 256 MPV 9.2 Immature Gran % (Auto) 0.2 Neut % (Auto) 68.8 Lymph % (Auto) 14.5 [place] % (Auto) 12.8 Eos % (Auto) 3.3 Baso % (Auto) 0.4 Neut # (Auto) 3.50 Lymph # (Auto) 0.74 L [place]wood # (Auto) 0.65 H Eos # (Auto) 0.17 Baso # (Auto) 0.02 Immature Gran # (Auto) 0.01 Sodium 143 Potassium 3.7 Chloride 111 H Carbon Dioxide 26 Anion Gap 5.0 BUN 12 Creatinine 0.88 Est Cr Clr Drug Dosing 65.7 Est GFR ( Amer) 77.7 Est GFR (Non-Af Amer) 67.0 BUN/Creatinine Ratio 14.1 Glucose 90 Calcium 8.8 Diagnostic Findings Echo report reviewed as noted above in HPI. ECG 02/26/2020 at 9:35 a.m.: AFib with RVR 110 beats per minute. ECG 02/26/2020 at 9:25 a.m.: AFib with RVR. PVC versus aberrantly conducted complex. 159 beats per minute. Nonspecific ST/T-wave abnormality. ECG 02/27/2020 7:09 a.m.: AFib 107 beats per minute. Chest x-ray 02/26/2020: No acute abnormality per Radiology. Medications Administered Current Inpatient Medications Al Hydrox/Mg Hydrox/Simethicone (Aluminum/Magnesium/Simeth (Maalox Max) 30 Ml Udc) 30 ml PO Q6H PRN PRN Reason: Heartburn Stop: 03/27/20 13:25 Apixaban (Apixaban 5 Mg Tablet) 5 mg PO BID [facility] Stop: 03/27/20 11:14 Last Admin: 02/27/20 08:04 Dose: 5 mg Documented by: Diltiazem HCl (Diltiazem Hcl 30 Mg Tab) 30 mg PO Q6H [facility] Stop: 03/28/20 10:44 Last Admin: 02/27/20 12:59 Dose: 30 mg Documented by: Gabapentin (Gabapentin 400 Mg Cap) 400 mg PO HS [facility] Stop: 03/27/20 20:59 Last Admin: 02/26/20 20:41 Dose: 400 mg Documented by: Diltiazem HCl 125 mg/ Dextrose 125 mls @ 5 mls/hr IV .Q24H [facility]; Protocol Stop: 03/27/20 09:29 Last Titration: 02/27/20 09:15 Dose: 5 mg/hr, 5 mls/hr Documented by: Ibuprofen (Ibuprofen 600 Mg Tab) 600 mg PO BID [facility] Stop: 03/27/20 20:59 Last Admin: 02/27/20 08:06 Dose: 600 mg Documented by: Loperamide HCl (Loperamide Hcl 2 Mg Cap) 2 mg PO Q2D PRN PRN Reason: ibs Stop: 03/27/20 13:25 Magnesium Hydroxide (Magnesium Hydroxide Susp 30 Ml Udc) 30 ml PO Q6H PRN PRN Reason: Constipation Stop: 03/27/20 13:25 Metoprolol Tartrate (Metoprolol Tartrate 25 Mg Tab) 25 mg PO Q6 [facility] Stop: 03/27/20 13:44 Last Admin: 02/27/20 13:29 Dose: 25 mg Documented by: Montelukast Sodium (Montelukast Sodium 10 Mg Tablet) 10 mg PO HS [facility] Stop: 03/27/20 20:59 Last Admin: 02/26/20 20:42 Dose: 10 mg Documented by: Ondansetron HCl (Ondansetron Inj 2 Mg/Ml 2 Ml Vial) 4 mg IV Q8H PRN PRN Reason: Nausea Stop: 03/27/20 13:25 Pantoprazole Sodium (Pantoprazole 40 Mg Tab) 40 mg PO HS [facility] Stop: 03/27/20 20:59 Last Admin: 02/26/20 20:41 Dose: 40 mg Documented by: Vitamin D (Cholecalciferol 1,000 Units 25 Mcg Tab) 1,000 units PO QAM [facility] Stop: 03/28/20 08:59 Last Admin: 02/27/20 08:04 Dose: 1,000 units Documented by: PG Care Time/CCT Total # of Minutes Spent Total Time Spent with Patient: Total time spent is greater than 50% in coordination of care (as documented) at patient's floor/unit and/or counseling patient: Coding Level of Care Code 65264 Initial Inpt Care Lvl 3 Diagnoses Atrial fibrillation with rapid ventricular response I48.91 HTN (hypertension) I10 Hypervolemia E87.70 Mitral regurgitation I34.0
[2020-02-27] MEDS ORDERED: FUROSEMIDE 20 MG in SYRINGE 0 ML IV ONE (13:30)
[2020-02-27] MEDS ORDERED: DICLOFENAC SOD 1% GEL 100 GM TUBE EXT PRN (17:07)
[2020-02-27] MEDS: MONTELUKAST SODIUM 10 MG TABLET PO SCH (20:46)
[2020-02-27] MEDS: PANTOprazole 40 MG TAB PO SCH (20:46)
[2020-02-27] MEDS: GABAPENTIN 400 MG CAP PO SCH (20:46)
[2020-02-28] MEDS: dilTIAZem HCL 30 MG TAB PO SCH ×2 (05:05→07:43)
[2020-02-28] MEDS: METOPROLOL TARTRATE 25 MG TAB PO SCH (06:10)
[2020-02-28 06:28] LABS: Basophils # (auto) 0.02 K/uL (0-0.2); Basophils % (auto) 0.4 %; Eosinophils % (auto) 3.8 %; Hematocrit (blood only) 34.9 % (37-47); Hemoglobin 12.1 g/dL (12.0-16.0); Immature Granulocytes # (auto) 0.01 K/uL (0.00-0.02); Immature Granulocytes % (auto) 0.2 %; Lymphocytes # (auto) 0.97 K/uL (1.2-3.4); Lymphocytes % (auto) 18.3 %; Mean Corpuscular Hemoglobin 33.2 pg (25-34); Mean Corpuscular Hgb Conc 34.7 g/dL (32-36); Mean Corpuscular Volume 95.9 fL (80-100); Mean Platelet Volume 9.1 fL (7.4-10.4); Monocytes # (auto) 0.78 K/uL (0.11-0.59); Monocytes % (auto) 14.7 %; Neutrophils # (auto) 3.32 K/uL (1.4-6.5); Neutrophils % (auto) 62.6 %; Platelet Count 233 K/uL (130-400); RDW Coefficient of Variation 12.8 % (11.5-14.5); RDW Standard Deviation 45.1 fL (36.4-46.3); Red Blood Count 3.64 M/uL (4.2-5.4)
--- NOTE | 2020-02-28 07:16 | Electrocardiogram Report ---
Test Reason : Blood Pressure : / mmHG Vent. Rate : 107 BPM Atrial Rate : 107 BPM P-R Int : 000 ms QRS Dur : 072 ms QT Int : 384 ms P-R-T Axes : 000 046 051 degrees QTc Int : 512 ms Atrial fibrillation with rapid ventricular response Septal infarct , age undetermined Abnormal ECG When compared with ECG of 26-FEB-2020 09:35, Septal infarct is now Present Nonspecific T wave abnormality no longer evident in Inferior leads Confirmed by Maximiliano Vigil ([id number]) on 02/28/2020 7:15:53 AM Referred By: Robert Moncada Confirmed By:Maximiliano Vigil
[2020-02-28 07:26] LABS: BUN Creatinine Ratio 15.6 (10-20); Calcium 8.3 mg/dl (8.5-10.1); Creatinine Clr Calc Pharmacy 54.9 ml/min; Est GFR (African American) 62.8; Est GFR (Non-African American) 54.1; Potassium 3.6 mmol/L (3.5-5.1)
[2020-02-28] MEDS: APIXABAN 5 MG TABLET PO SCH (07:42)
[2020-02-28] MEDS: CHOLECALCIFEROL 1,000 UNITS 25 MCG TAB PO SCH (07:43)
[2020-02-28] MEDS: IBUPROFEN 600 MG TAB PO SCH (07:45)
[2020-02-28] MEDS ORDERED: DIPHENOXYLATE/ATROPINE 2.5/0.025MG TAB PO PRN (09:12)
--- NOTE | 2020-02-28 10:19 | Cardiology Progress Note ---
Date of Service February 28, 2020 Assessment & Plan Admission and Anticipated Discharge Date Admission Date: February 27, 2020 Subjective She feels like her chest is tight today.She notes she she feels like her asthma has worsened. She did receive IV diuretics yesterday and notes that her abdominal tightness and distention improved. And her breathing improved as well. She denies any palpitations or fluttering at this point her heart rate on lunchroom monitor is much improved. She is having significant coughing and had a sleep in a chair last night due to which she feels is worsening of her underlying asthma. She is on beta-blockers newly started during this hospitalization. She has any bleeding or bruising. She is awake alert and oriented x3 she appears in mild distress. HEENT: 2+ carotid upstrokes Lungs: Globally decreased breath sounds with expiratory wheezing with forced expiration and with a deep inspiratory breath she sounds tight. Heart: Irregular rate and rhythm no appreciable murmurs or rubs Abdomen: Soft nontender distended positive bowel sounds Extremities no clubbing cyanosis or edema Assessment & Plan (1) Atrial fibrillation with rapid ventricular response: (2) HTN (hypertension): (3) Hypervolemia: (4) Mitral regurgitation: 5. Normal biventricular size and function ASSESSMENT/PLAN: 1. AFib with RVR: We will stop her beta-blockers as it appears to be worsening her asthma. We will increase her diltiazem from an equivalent 120 mg over 24- hour. At 240 mg over a 24-hour period.She will need to remain on apixaban 5 mg twice daily. Hopefully with stopping her beta-blockers her asthma will slowly improve. 2. Worsening of her underlying asthma: There may be some heart failure component but it is likely related to beta-blockers. I did write for Xopenex 2 puffs 4 times daily and will give her 2 puffs immediately. She will also be given Lasix for 20 mg x 1 IV. 3. Mitral regurgitation: finding on echo. She recalls having history of mitral regurgitation. Monitor over time. 4. Hypertension: Well-controlled 5. Disposition: I would await to see how she feels this afternoon if her breathing is better and she is back to her baseline then she can be discharged home. I would send her home with as needed diuretics to have just in case her weight increases by 2 to 3 pounds in a 24 to 48-hour period.I would avoid beta- blockers in the future Sincerely, Damir Vigil M.D. Results & Data ([facility]) Vital Signs (Past 12 Hours) Vital Signs Temp Pulse Pulse Resp BP BP Pulse Ox 02/28/20 07:12 36.4 C L 81 19 108/77 98 02/28/20 07:00 86 02/28/20 06:11 188/84 H 02/28/20 04:05 36.4 C L 97 H 14 127/77 97 02/27/20 23:44 124/86 02/27/20 22:42 36.5 C 88 16 132/88 96
[2020-02-28] MEDS ORDERED: dilTIAZem HCL 240 MG CAPCR PO SCH (10:30)
[2020-02-28] MEDS ORDERED: FUROSEMIDE 20 MG in SYRINGE 0 ML IV ONE (10:30)
[2020-02-28] MEDS ORDERED: LEVALBUTEROL TARTRATE 15 GM HFA.AER.AD INH SCH (11:00)
--- NOTE | 2020-02-28 15:08 | Discharge Summary ---
Date of Service February 28, 2020 Admission HPI Per Admitting Provider Mrs. Amin is a 69 year old female with a history of Asthma, Inflammatory Arthritis, Osteoarthritis, GERD, and Hypertension who presented to the ER today as a referral from her PCP, Dr. Steinberg. Patient went in for an annual physical exam today and was noted to tachycardic secondary A-Fib with RVR. Patient admits to having intermittent tachy-palpitations over the past year if not longer, but her current episode started about 2 months ago and has persisted. She admits to decreased exercise tolerance, unusual CAMPOS when she walks her dog, and more fatigue in general. She denies any chest pain, heaviness, tightness, or pressure. She denies any orthopnea or PND, although she has not been sleeping well lately. She denies any syncope or near-syncope. She has not experienced any neurologic symptoms suggestive of stroke or mini- stroke. Patient denies any history of heart disease, CAD, AR, rheumatic fever, or vascular disease. She had a Cardiac Catheterization about 15 years ago that was "normal" per akira rodriguez. Principal Diagnosis Pt is feeling much improved today. It was reported that she had an asthma attack earlier today, which was felt to be due to the metoprolol use. Cardiology has changed her medications and she was given a xopenex inhaler and she is feeling much better. She has no further SOB. Pt denies fever, chest pain, abd pain, n/v/c/d, LE pain or swelling. Discharge Exam Constitutional WD/WN, vitals as above Eyes normal visual barton by confrontation and + anicteric sclerae Neck normal visual inspection and trachea midline Respiratory normal respiratory effort, lungs clear to auscultation Cardiovascular Rate/Rhythm: regular rate; + abnormal rhythm Gastrointestinal (Abdomen) Inspection/Auscultation: abdomen not distended Percussion/Palpation: abdomen soft; abdomen nontender Musculoskeletal Head/Neck/Chest: normocephalic and head atraumatic Skin no rashes, warm and dry Neurologic awake; not confused Speech / Cognition: normal speech Psychiatric A+Ox3, euthymic affect Discharge Data Allergies Allergy/AdvReac Type Severity Reaction Status Date / Time iodine AdvReac Severe DIFFICULTY Unverified 02/26/20 11:06 BREATHING codeine AdvReac Unknown Verified 02/26/20 11:06 etanercept [From Enbrel] AdvReac Unknown Verified 02/26/20 11:06 hydroxychloroquine AdvReac Unknown Verified 02/26/20 11:06 [From Plaquenil] Iodinated Contrast Media AdvReac Unknown Verified 02/26/20 11:06 meperidine [From Demerol] AdvReac Unknown Verified 02/26/20 11:06 nabumetone AdvReac Unknown Verified 02/26/20 11:06 petrolatum,white AdvReac Unknown Verified 02/26/20 11:06 [From Petroleum Jelly] penicillin G AdvReac HIVES Verified 02/26/20 11:06 Sulfa (Sulfonamide AdvReac RASH, HIVES Verified 02/26/20 11:06 Antibiotics) Consultations 02/26/20 10:05 ED Decision to Admit Stat 02/27/20 08:24 Consult Cardiology Routine Hospital Course (1) Atrial fibrillation with rapid ventricular response: TSH WNL Started on dilt drip and attempted to transition to metoprolol, however pt with asthma exacerbation Converted to PO dilt and stable eliquis for stroke prevention F/U cards as outpt (2) Hypokalemia: replaced and improved (3) Asthma: Exacerbation related to metoprolol use Improved with xopenex Use as below (4) Rheumatoid arthritis: sees outpatient rheumatology attempting to get approval for Xelganz which controls her symptoms well -- last dose 1-15 currently pain free Will need to monitor ibuprofen use given eliquis (5) Insomnia: Pt states this has been an issue for 30 years States ambien use in the past which helped Melatonin was not helpful Has recently tried increased HS gabapentin without help Advised that ambien is not for halfway use, rx given for 7 tabs Advised t/c CBD for circadian rhythm reset Pt notes her environmental construction engineer suggested she try acupuncture in the past for her inflammatory arthritis This may help with her insomnia as well Total Time Total Time Spent Total Time Spent (In Minutes): >30 Total Time Includes: Examination of the Patient, Discharge Planning, Medication Reconciliation, Communication With Other Providers and Other Discharge Plan Discharge Items Patient Disposition: Home - Self-Care Reason For Visit: AFIB W RVR Discharge Diagnosis: Afib/RVR Activity: Resume your previous activity Non-emergency contact: Primary Care Provider and Head Of Music Call non-emergency contact if: you have any medication questions and your symptoms worsen Follow-up/Referrals: Maximiliano Vigil MD [Physician] - 03/04/20 2:00 pm Robert Moncada MD [Primary Care Provider] - Diet: Regular Addtl Attending Provider Instructions: You could consider using CBD to help with your chronic insomnia. It is sold many places, but [employer] has several good options. If you would like to pursue acupuncture for your arthritis as recommended by your environmental construction engineer or for your insomnia, you are welcome to schedule an appt with me at my office in the [address] [place] [address]. The number to schedule is [phone]. You should be cautious with taking ibuprofen with eliquis as the combination of medications could cause bleeding in your stomach. A sign that this is developing might be bleeding from your nose or gums, or increased bruising. You do not need to continue taking lasix. If you start to notice swelling, this is a sign that you might need intermission coordinator use of this medication and you should discuss with Dr. Mohan or Dr. Moncada. You should use the xopenex four times a day for the next week. After than time, you can use it as needed for your asthma. Pending Studies at Discharge: No Stand-Alone Forms: [facility], Smoking Cessation Medications and DC Order Prescriptions: New diltiazem HCl 240 mg Capsule,Extended Release 24hr 240 mg PO QAM Qty: 30 RF: 0 levalbuterol tartrate [Xopenex HFA] 45 mcg/actuation Hfa Aerosol Inhaler 2 puff inhalation QIDR Qty: 15 RF: 0 zolpidem [Ambien] 5 mg tablet 5 mg PO HS PRN (Reason: insomnia) Qty: 7 RF: 0 zolpidem [Ambien] 5 mg tablet 5 mg PO HS PRN (Reason: insomnia) Qty: 7 RF: 0 Eliquis 5 mg tablet 5 mg PO BID Qty: 60 RF: 0 Continued cholecalciferol (vitamin D3) 25 mcg (1,000 unit) tablet 25 mcg PO QAM RF: 0 Protonix [address] ramsey susp in packet 40 mg PO HS RF: 0 Xeljanz XR 11 mg tablet extended release 24 hr 11 mg PO DAILY RF: 0 mecobalamin (vitamin B12) 5,000 mcg lozenge 5,000 mcg PO QAM RF: 0 loperamide 2 mg Capsule 2 mg PO Q OTHER DAY PRN (Reason: ibs) RF: 0 gabapentin 400 mg capsule 400 mg PO HS RF: 0 montelukast [Singulair] 10 mg Tablet 10 mg PO HS RF: 0 ibuprofen 600 mg Tablet 600 mg PO BID RF: 0 Discharge Orders: Discharge Order (Routine); Ordered 02/28/20 Ordered By: Rhona Ge Admission Data Admit Date/Time: 02/27/20 09:07 Attending Provider: Rhona Ge Admit Provider: Dheeraj Green Primary Care Provider: Robert Moncada Other Providers: Satinder Taveras ; Maximiliano Vigil Other Interventions: Discharge Summary Assessment (RN) Last Done: 02/28/20 14:47 Coding Level of Care Code D/C Day Management >30 mins Diagnoses Atrial fibrillation with rapid ventricular response I48.91 Hypokalemia E87.6 Asthma J45.909 Rheumatoid arthritis M06.9 Insomnia G47.00
== END 2020-02-28 15:35 | disposition home or self-care (01) | DRG 310 ==
LOC: ED 09:19 → 2S 09:19 → SUATTDRO 12:01 → 2S 13:01 → SUATTDRO 02-27 09:07